=== PATIENT | male | born 1985 | race Caucasian/White ===

== ENCOUNTER 2016-05-25 21:40 | Emergency (ER) | payer SELFPAY ==
[~2016-05-25] VITALS: Ht 182.9 cm; Wt 127.0 kg
[~2016-05-25 21:40] MED LIST: CIPR500T4 PO; ONDA8TAB13 PO; ONDAN4ODT PO; PHEN-639 PO; SULF1TAB35 PO; TRAM50TA2 PO
--- NOTE | 2016-05-25 21:51 | ED Headache ---
General Stated Complaint: HEADACHE/NAUSEA Source: patient Exam Limitations: no limitations History of Present Illness Time seen by provider: 21:49 Initial Comments To ER with a headache and nausea. This began this morning when he first awakened. He states that upon awakening he felt "a little queasy". He then had to take his son to [place] and during the ride up there he developed a headache that stayed with him throughout the course of the day. Headache is frontal in location worsened by light. There was nothing that worsens his headache except exposure to bright lights and the only thing that improves his headache is putting pressure on the front of his forehead. No history of this. No visual changes. No neck pain or stiffness. He's had chills but no fevers. He also had diarrhea once this morning. No history of headaches. The headache was gradual in onset and not thunderclap style. He has also had some dizziness today mostly upon changing position from sitting to standing. His headache has improved somewhat at this time since its maximum intensity reached at some point this afternoon. Timing/Duration: other (12 hours) Severity/Quality: moderate Location: frontal Prior Headaches/Recent Trauma: no recent headache/trauma Modifying Factors: worse with exposure to light Associated Symptoms: No confusion, No fatigue, No facial pain, No fever/chills , No flushing, No loss of consciousness, nausea/vomiting, No nasal congestion, No nasal drainage, No numbness in legs/feet, No rash, No seizures, No sinus infection, No stiff neck, No vision changes, No weakness Allergies and Home Medications Allergies Coded Allergies: No Known Drug Allergies (Unverified , 01/25/10) Home Medications No Active Prescriptions or Reported Meds Constitutional: see HPI Eyes: See HPI, Denies Blindness, Denies Blurred Vision, Photophobia Ears, Nose, Mouth, Throat: no symptoms reported Respiratory: no symptoms reported Cardiovascular: no symptoms reported Gastrointestinal: No abdominal pain, nausea Genitourinary: no symptoms reported Musculoskeletal: no symptoms reported Skin: no symptoms reported Psychiatric/Neurological: No Symptoms Reported Past Igofjpf-Ctkzvq-Czzgnv Hx Patient Social History Recent Foreign Travel: No Contact w/Someone Who Travel: No Immunizations Up To Date Tetanus Booster (TDap): Less than 5yrs Seasonal Allergies Seasonal Allergies: No Surgeries HX Surgeries: Yes (TESTICULAR SURG CHILD) Respiratory Hx Respiratory Disorders: No Cardiovascular Hx Cardiac Disorders: No Neurological Hx Neurological Disorders: No Reproductive System Hx Reproductive Disorders: No Genitourinary Hx Genitourinary Disorders: No Gastrointestinal Hx Gastrointestinal Disorders: No Musculoskeletal Hx Musculoskeletal Disorders: No Endocrine Hx Endocrine Disorders: No HEENT HX ENT Disorders: No Cancer Hx Cancer: No Psychosocial Hx Psychiatric Problems: No Integumentary HX Skin/Integumentary Disorder: No Blood Transfusions Hx Blood Disorders: No Family Medical History Significant Family History: No Pertinent Family Hx Physical Exam Vital Signs Vital Sign - Last 12Hours 05/25/16 21:44 Temp 96.5 Pulse 64 Resp 18 B/P (MAP) 130/88 Pulse Ox 98 O2 Delivery Room Air Capillary Refill : General Appearance: WD/WN, no apparent distress HEENT: PERRL/EOMI, normal ENT inspection, photophobia Neck: non-tender, full range of motion, No lymphadenopathy (R), No lymphadenopathy (L), No tender lateral, No tender midline, other (able to flex chin to chest without worsening headache or neck pain) Cardiovascular: regular rate, rhythm, no murmur Respiratory: lungs clear, normal breath sounds, no respiratory distress, no accessory muscle use Gastrointestinal: normal bowel sounds, non tender, soft Extremities: normal range of motion, non-tender Psychiatric: alert, oriented x 3 Crainal Nerves: normal hearing, normal speech, PERRL Skin: normal color, warm/dry Progress/Results/Core Measures Results/Orders Lab Results Laboratory Tests Test 05/25/16 21:50 Range/Units White Blood Count 8.1 4.3-11.0 10^3/uL Red Blood Count 5.37 4.35-5.85 10^6/uL Hemoglobin 16.4 13.3-17.7 G/DL Hematocrit 46 40-54 % Mean Corpuscular Volume 86 80-99 FL Mean Corpuscular Hemoglobin 31 25-34 PG Mean Corpuscular Hemoglobin Concent 35 32-36 G/DL Red Cell Distribution Width 13.1 10.0-14.5 % Platelet Count 244 130-400 10^3/uL Mean Platelet Volume 9.7 7.4-10.4 FL Neutrophils (%) (Auto) 65 42-75 % Lymphocytes (%) (Auto) 25 12-44 % Monocytes (%) (Auto) 8 0-12 % Eosinophils (%) (Auto) 2 0-10 % Basophils (%) (Auto) 1 0-10 % Neutrophils # (Auto) 5.3 1.8-7.8 X 10^3 Lymphocytes # (Auto) 2.0 1.0-4.0 X 10^3 Monocytes # (Auto) 0.6 0.0-1.0 X 10^3 Eosinophils # (Auto) 0.2 0.0-0.3 10^3/uL Basophils # (Auto) 0.0 0.0-0.1 10^3/uL My Orders Orders - ALEXEY CENTENO APRN Cbc With Automated Diff (05/25/16 21:48) Saline Lock/Iv-Start (05/25/16 21:48) Ct Head Wo (05/25/16 21:48) Ns Iv 1000 Ml (Sodium Chloride 0.9%) (05/25/16 22:00) Ketorolac Injection (Toradol Injection) (05/25/16 22:00) Diphenhydramine Injection (Benadryl Inje (05/25/16 22:00) Prochlorperazine Injection (Compazine In (05/25/16 22:00) Medications Given in ED Current Medications Medications Dose Ordered Sig/Ledy Route Start Time Stop Time Status Last Admin Dose Admin Diphenhydramine HCl 25 mg ONCE ONCE IVP 05/25/16 22:00 05/25/16 22:01 DC 05/25/16 22:16 25 MG Ketorolac Tromethamine 30 mg ONCE ONCE IVP 05/25/16 22:00 05/25/16 22:01 DC 05/25/16 22:17 30 MG Prochlorperazine Edisylate 5 mg ONCE ONCE IV 05/25/16 22:00 05/25/16 22:01 DC 05/25/16 22:17 5 MG Vital Signs/I&O Vital Sign - Last 12Hours 05/25/16 21:44 Temp 96.5 Pulse 64 Resp 18 B/P (MAP) 130/88 Pulse Ox 98 O2 Delivery Room Air Departure Communication Progress Notes 2238-CT scan per [employer] interpretation shows no intracranial hemorrhage or mass effect or edema. No evidence of acute cortical stroke. The visualized sinuses and mastoid air cells are clear. He currently Rates headache at 2 out of 10. On arrival was 7-8 out of 10. Will DC to home. Impression Impression: Primary Impression: Headache Additional Impression: Nausea Disposition: HOME, SELF-CARE Condition: Stable Departure-Patient Inst. Decision time for Depature: 22:28 Referrals: NO,LOCAL PHYSICIAN (PCP/Family) Primary Care Physician Patient Instructions: Headache, Adult (DC) Add. Discharge Instructions: 1. If your headache continues you must call your regular health care provider tomorrow to make an appointment for further evaluation. If you do not have a physician, a list has been provided for you. 2. Return to the emergency room for any worsening headache, fevers, vision changes or other concerns Scripts No Active Prescriptions or Reported Meds Work/School Note: Local Medical Staff Listing ALEXEY CENTENO APRN May 25, 2016 21:51
[2016-05-25] MEDS ORDERED: KETOROLAC 30 MG/ML VIAL IVP ONE (22:00)
[2016-05-25] MEDS ORDERED: diphenhydrAMINE 50 MG/ML INJ (BENADRYL) IVP ONE (22:00)
[2016-05-25] MEDS ORDERED: NS IV 1000 ML 1,000 ML IV SCH (22:00)
[2016-05-25] MEDS ORDERED: PROCHLORPERAZINE 10 MG/2ML INJ (COMPAZINE) IV ONE (22:00)
[2016-05-25 22:22] LABS: BASOPHILS % (AUTO) 1 % (0-10); EOSINOPHILS # (AUTO) 0.2 10^3/uL (0.0-0.3); EOSINOPHILS % (AUTO) 2 % (0-10); LYMPHOCYTES % (AUTO) 25 % (12-44); MEAN CORPUSCULAR HEMOGLOBIN 31 PG (25-34); MEAN CORPUSCULAR HGB CONC 35 G/DL (32-36); MEAN CORPUSCULAR VOLUME 86 FL (80-99); MEAN PLATELET VOLUME 9.7 FL (7.4-10.4); MONOCYTES # (AUTO) 0.6 X 10^3 (0.0-1.0); MONOCYTES % (AUTO) 8 % (0-12); NEUTROPHILS # (AUTO) 5.3 X 10^3 (1.8-7.8); NEUTROPHILS % (AUTO) 65 % (42-75); PLATELET COUNT 244 10^3/uL (130-400); RED BLOOD COUNT 5.37 10^6/uL (4.35-5.85); RED CELL DISTRIBUTION WIDTH 13.1 % (10.0-14.5); WHITE BLOOD COUNT 8.1 10^3/uL (4.3-11.0)
[2016-05-25 22:55] VITALS: BP 135/79
--- NOTE | 2016-05-26 07:13 | Diagnostic Imaging Report ---
PROCEDURE: CT head without contrast. TECHNIQUE: Multiple contiguous axial images were obtained through the brain without the use of intravenous contrast. INDICATION: Headache for one day Comparison studies: None Findings: Noncontrast CT scan of the head demonstrates no mass effect, midline shift, hemorrhage or extra-axial fluid collections. Mooney-white matter differentiation is normal. Bone windows appear normal. IMPRESSION: Normal CT scan of the head. Dictated by: Dictated on workstation # [id number]
--- OUTSIDE RECORDS SUMMARY | 2016-05-29 05:21 | XMS REPORT ---
Author Author LUIS DEJESUS [facility] eClinical[employer] Address Unknown Phone Unavailable Care Team Providers Care Authors Motivational Name Role Phone LUIS DEJESUS CP Unavailable Allergies No Known Allergies Problems Problem Type Condition ICD-9 Code Onset Dates Condition Status Problem Unspecified backache 724.5 Active Problem Lumbago 724.2 Active Problem Unspecified hemorrhoids without mention of complication 455.6 Active Medications No Known Medications Results No Known Results Summary Purpose eClinicalWorks Submission
--- OUTSIDE RECORDS SUMMARY | 2016-05-29 05:21 | XMS REPORT | Continuity of Care Document ---
Author Author [facility] Organization [facility] Address Unknown Phone Unavailable Care Team Providers Care Recreation Superintendent Name Role Phone [facility] Insurance Providers Payer Name Policy Number Subscriber Name Relationship Self Pay Chelo Platt 01 Self / Same As Patient Advance Directives Directive Response Recorded Date Advance Directives N 09/15/12 7:00pm Health Care Power of Consumer Safety Officer N 09/15/12 7:00pm Organ Donor N 09/15/12 7:00pm Problems No Known Problems or Medical conditions. Social History History Response Recorded Date/Time Alcohol Use Occasionally Uses 09/15/12 7: 00pm Recreational Drug Use N 09/15/12 7:00pm Allergies, Adverse Reactions, Alerts Allergen Type Severity Reaction Last Updated No Known Drug Allergies 01/25/10 Medications No known medications Response Recorded Date/Time Status not known Unknown Results No Known Relevant Diagnostic Tests, Laboratory Data and/or Discharge Summary. Encounters Encounter Location Date/Time Departed Emergency Room [facility] 6:55pm Registered Emergency Room [facility] 08/26/05 5:56pm
--- OUTSIDE RECORDS SUMMARY | 2016-05-29 05:21 | XMS REPORT | Continuity of Care Document ---
Author Author [facility] Address Unknown Phone Unavailable Allergies Active Description Code Type Severity Reaction Onset Reported/Identified Relationship to Patient Clinical Status Yes No Known Drug Allergies [id number] Drug Allergy Unknown N/ A 01/25/2010 Medications Problems Date Dx Coded Attending Type Code Diagnosis Diagnosed By 01/25/2010 Ot 682.6 03/09/2010 847.2 SPRAIN LUMBAR REGION 03/09/2010 JULIETA PATEL APRN 847.2 SPRAIN LUMBAR REGION 03/09/2010 847.2 SPRAIN LUMBAR REGION 10/07/2011 Ot 558.9 10/07/2011 Ot 787.01 03/27/2012 455.6 UNSPECIFIED HEMORRHOIDS WITHOUT COMPLICATION 03/27/2012 JULIETA PATEL APRN 455.6 UNSPECIFIED HEMORRHOIDS WITHOUT COMPLICATION 03/27/2012 455.6 UNSPECIFIED HEMORRHOIDS WITHOUT COMPLICATION 05/30/2012 JULIETA PATEL APRN 724.2 LUMBAGO/ LOW BACK PAIN 05/30/2012 724.2 LUMBAGO/ LOW BACK PAIN 09/15/2012 TREVOR ADAMS, DREW Geronimo Ot 882.1 09/15/2012 TREVOR ADAMS, DREW A Ot E000.8 09/15/2012 TREVOR ADAMS, DREW A Ot E849.0 09/15/2012 TREVOR ADAMS, DREW A Ot E920.8 10/30/2012 724.5 BACKACHE UNSPECIFIED 11/13/2014 BRANDIE NOYOLA Ot 276.50 11/13/2014 BRANDIE NOYOLA Ot 599.0 11/13/2014 BRANDIE NOYOLA Ot 787.01 11/13/2014 BRANDIE NOYOLA Ot 788.0 Procedures Code [place] [address] UA W/ CULTURE IF INDICATED 05/30/2012 13714 XRAY LUMBAR SPINE 2 OR 3 VIEWS 05/31/2012 Results Test Result Range Complete blood count (CBC) with automated white blood cell (WBC) differential - 05/25/16 21:50 Blood leukocytes automated count (number/volume) 8.1 10*3/ uL 4.3-11.0 Blood erythrocytes automated count (number/volume) 5.37 10*6 /uL 4.35-5.85 Venous blood hemoglobin measurement (mass/volume) 16.4 g/dL 13.3-17.7 Blood hematocrit (volume fraction) 46 % 40-54 Automated erythrocyte mean corpuscular volume 86 [foz_us] 80-99 Automated erythrocyte mean corpuscular hemoglobin (mass per erythrocyte) 31 pg 25-34 Automated erythrocyte mean corpuscular hemoglobin concentration measurement ( mass/volume) 35 g/dL 32-36 Automated erythrocyte distribution width ratio 13.1 % 10.0-14.5 Automated blood platelet count (count/volume) 244 10*3/uL 130-400 Automated blood platelet mean volume measurement 9.7 [foz_us ] 7.4-10.4 Automated blood neutrophils/100 leukocytes 65 % 42-75 Automated blood lymphocytes/100 leukocytes 25 % 12-44 Blood monocytes/100 leukocytes 8 % 0-12 Automated blood eosinophils/100 leukocytes 2 % 0-10 Automated blood basophils/100 leukocytes 1 % 0-10 Blood neutrophils automated count (number/volume) 5.3 10*3 1.8-7.8 Blood lymphocytes automated count (number/volume) 2.0 10*3 1.0-4.0 Blood monocytes automated count (number/volume) 0.6 10*3 0.0-1.0 Automated eosinophil count 0.2 10*3/uL 0.0-0.3 Automated blood basophil count (count/volume) 0.0 10*3/uL 0.0-0.1 Encounters ACCT No. Visit Date/Time Discharge Status Pt. Type Provider Facility Loc./Unit Complaint [id number] 05/30/2012 15:14:00 05/30/2012 23: 59:59 CLS Outpatient JULIETA PATEL APRN [id number] 03/27/2012 09:50:00 03/27/2012 23: 59:59 CLS Outpatient [id number] 10/30/2012 14:29:00 Document Registration
== END 2016-05-25 22:55 | disposition home or self-care (01) ==
LOC: EDUNIT# 21:40 → ER 21:42
DX: R51 Headache (principal); R42 Dizziness and giddiness; R11.0 Nausea
CPT/HCPCS: 36415; 70450; 85025; 96361; 96374; 96375

== ENCOUNTER → 2016-08-15 | Outpatient (CLI) | payer BC, OTHER ==
--- NOTE | 2016-08-15 10:25 | Diagnostic Imaging Report ---
PROCEDURE: MRI lumbar spine. TECHNIQUE: Multiplanar, multisequence MRI of the lumbar spine was performed without contrast. INDICATION: Back pain. FINDINGS: The alignment of the lumbar spine is satisfactory. The vertebral body heights are preserved. There is disc desiccation at the L5/S1 level. Minimal disc height loss at this level is seen. The cauda equina and conus medullaris appear grossly unremarkable. The AP dimension of the spinal canal is relatively narrow particularly around L3 level with no congenital spinal canal stenosis however. T12/L1: No disc herniation, no spinal canal or foraminal stenosis. L1/2: No disc herniation, no spinal canal or foraminal stenosis. L2/3: There is no disc herniation. There is mild facet and ligamentous hypertrophy. No central canal or lateral recess stenosis. No foraminal narrowing. L3/4: There is no disc herniation. There is mild facet hypertrophy seen bilaterally. No central canal, lateral recess or foraminal stenosis. L4/5: There is no disc herniation, no central canal stenosis. There is mild facet hypertrophy with minimal facet joint effusion bilaterally. No central canal stenosis. There is mild narrowing of the lateral recess bilaterally. The foramina demonstrate minimal stenosis bilaterally. L5/S1: There is a central disc protrusion and mild facet hypertrophy. No central canal or lateral recess stenosis. There is mild foraminal narrowing more prominent in the left side. 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 Mild facet hypertrophy in the lower lumbar spine and disc protrusion at L5/S1 is seen. No high-grade spinal canal or foraminal stenosis is seen at any level. Dictated by: Dictated on workstation # [id number]
== END | disposition home or self-care (01) ==
LOC: RAD 08:46
PROVIDERS: ATTEND Nurse Practitioner Adult Health
DX: M51.27 Other intervertebral disc displacement, lumbosacral region (principal)
CPT/HCPCS: 72148

== ENCOUNTER 2018-12-30 16:20 | Emergency (ER) | payer SELFPAY ==
[~2018-12-30] VITALS: Ht 185.4 cm; Wt 139.0 kg
[2018-12-30] MEDS ORDERED: TRAMADOL (16:33)
--- NOTE | 2018-12-30 16:42 | ED Cough/URI ---
General Chief Complaint: Fever-Adult/Adol Stated Complaint: FEVER Nursing Triage Note: FEVER STARTING MON. WENT TO CLINIC WHO "DID NOTHING" FOR HIM. HAS BEEN HAVING A LOW GRADE FEVER SINCE WITH A COUGH. HAS ONLY VOIDED ONCE TODAY. NO N/V. Sepsis Screen: Possible Severe Sepsis Risk Source: patient Exam Limitations: no limitations (SOFIE QUEZADA STUDENT) History of Present Illness Date Seen by Provider: Dec 30, 2018 Time Seen by Provider: 16:30 Initial Comments Patient presents to the ED today with a 5 day history of fever and productive cough. The patient states his fever reached 102 F at one point, but is afebrile today; he has taken Tylenol for the fever. He also stated he was coughing up black sputum but has recently turned to a green color. He has a history of bronchitis but has never had pneumonia. He has not received the influenza vaccine this year. He does not complain of any other associated symptoms. Timing/Duration: week Severity/Quality: moderate, productive cough, sputum Prior Episodes/Possible Cause: occasional episodes (Has a history of bronchitis) Modifying Factors: Improves With Other (Nothing alleviates the cough) Associated Symptoms: cough, fever/chills (SOFIE QUEZADA STUDENT) Allergies and Home Medications Allergies Coded Allergies: No Known Drug Allergies (Unverified , 01/25/10) Patient Home Medication List Home Medication List Reviewed: Yes (BRANDI GRAY MD) Review of Systems Review of Systems Constitutional: see HPI Respiratory: see HPI Cardiovascular: no symptoms reported Gastrointestinal: no symptoms reported Genitourinary: no symptoms reported Musculoskeletal: no symptoms reported Skin: no symptoms reported Psychiatric/Neurological: No Symptoms Reported Hematologic/Lymphatic: No Symptoms Reported Immunological/Allergic: no symptoms reported (SOFIE QUEZADA STUDENT) Constitutional: chills, fever EENTM: nose congestion; No throat pain Respiratory: cough; No short of breath, No wheezing (BRANDI GRAY MD) Past Msvclcz-Dreqwt-Jjvlnk Hx Past Med/Social Hx: Reviewed Nursing Past Med/Soc Hx (BRANDI GRAY MD) Patient Social History Alcohol Use: Denies Use Recreational Drug Use: No Smoking Status: Never a Smoker Type Used: Cigars Recent Foreign Travel: No Contact w/Someone Who Travel: No Recent Infectious Disease Expo: No Recent Hopitalizations: No (SOFIE QUEZADA STUDENT) Immunizations Up To Date Tetanus Booster (TDap): Less than 5yrs (SOFIE QUEZADA) Seasonal Allergies Seasonal Allergies: No (SOFIE QUEZADA) Past Medical History Surgeries: Yes (TESTICULAR SURG CHILD) Respiratory: No Cardiac: No Neurological: No Reproductive Disorders: No Genitourinary: No Gastrointestinal: No Musculoskeletal: No Endocrine: No HEENT: No Cancer: No Psychosocial: No Integumentary: No Blood Disorders: No (SOFIE QUEZDAA) Family Medical History Reviewed Nursing Family Hx (BRANDI GRAY MD) No Pertinent Family Hx (SOFIE QUEZADA) Physical Exam Vital Signs - First Documented 12/30/18 16:25 Temp 36.9 Pulse 98 Resp 16 B/P (MAP) 132/81 (98) Pulse Ox 99 O2 Delivery Room Air (BRANDI GRAY MD) Capillary Refill : Less Than 3 Seconds (SOFIE QUEZADA) Height: 6'1.00" Weight: 300lbs. oz. 136.834477me; 40.00 BMI Method:Stated General Appearance: WD/WN, no apparent distress Eyes: Bilateral Eye Normal Inspection, Bilateral Eye PERRL, Bilateral Eye EOMI HEENT: PERRL/EOMI, normal ENT inspection, TMs normal (Indicative of Upper Respiratory congestion, but not purulent), pharynx normal Respiratory: chest non-tender, no respiratory distress, no accessory muscle use, crackles (at right lung base) Cardiovascular: normal peripheral pulses, regular rate, rhythm, no edema, no gallop, no JVD, no murmur Gastrointestinal: normal bowel sounds, non tender, soft, no organomegaly, no pulsatile mass Extremities: non-tender, no pedal edema Neurologic/Psychiatric: alert, normal mood/affect, oriented x 3 Skin: normal color, warm/dry Lymphatic: no adenopathy (SOFIE QUEZADA) General Appearance: WD/WN, no apparent distress HEENT: other (mild bulging bilateral TMs without erythema or purulence) Neck: full range of motion, supple Respiratory: no respiratory distress, crackles (few at the bases bilateral but clears with cough) Cardiovascular: regular rate, rhythm, no murmur Neurologic/Psychiatric: alert, oriented x 3 (BRANDI GRAY MD) Progress/Results/Core Measures Suspected Sepsis Recent Fever Within 48 Hours: Yes Infection Criteria Present: Suspected New Infection New/Unexplained Altered Menta: No Sepsis Screen: Possible Severe Sepsis Risk SIRS Temperature: Pulse: 98 Respiratory Rate: 16 Blood Pressure 132 /81 Mean: 98 (SOFIE QUEZADA STUDENT) Results/Orders Micro Results Microbiology 12/30/18 Influenza Types A,B Antigen (YING) - Final, Complete (BRANDI GRAY MD) My Orders Orders - BRANDI GRAY MD Influenza A And B Antigens (12/30/18 16:31) Chest Pa/Lat (2 View) (12/30/18 16:36) (BRANDI GRAY MD) Vital Signs/I&O 12/30/18 16:25 Temp 36.9 Pulse 98 Resp 16 B/P (MAP) 132/81 (98) Pulse Ox 99 O2 Delivery Room Air (BRANDI GRAY MD) Vital Signs/I&O Capillary Refill : Less Than 3 Seconds (SOFIE QUEZADA STUDENT) Blood Pressure Mean: 98 Progress Note : Progress Note I have seen and evaluated the patient and agree with above except as indicated. I directed the plan of care. Patient is most concerned secondary to other family members with prolonged cough that ended up with pneumonia. Two-view chest x-ray and influenza screen ordered. Tolerating by mouth fluids without difficulty. Monitor patient. 1724: Levaquin 750 mg by mouth. Albuterol inhaler teaching done and go pack given. Discharged home with return precautions. Patient verbalize understanding instructions and agreement with plan. (BRANDI GRAY MD) Diagnostic Imaging Diagonstic Imaging: Xray Plain Films/CT/US/NM/MRI: chest Comments NAME: CHELO PLATT [facility] REC#: [id number] PT STATUS: REG ER : 1985 PHYSICIAN: BRANDI GRAY MD ADMIT DATE: 12/30/18/ER Draft Date of Exam:12/30/18 CHEST PA/LAT (2 VIEW) INDICATION: Febrile with cough. FINDINGS: There is consolidated infiltrate in the right middle lobe. The lungs are well aerated. Left lung is clear. Heart is not enlarged. No pulmonary edema. No pneumothorax or pleural effusion. IMPRESSION: Consolidated pneumonia right middle lobe. Dictated on workstation # [id number] Dict: 12/30/18 1710 Trans: 12/30/18 1714 KB [id number] Interpreted by: MATT FUENTES MD Electronically signed by: (BRANDI GRAY MD) Departure Impression Primary Impression: Right middle lobe pneumonia Qualified Codes: J18.1 - Lobar pneumonia, unspecified organism Disposition: HOME, SELF-CARE Condition: Stable Departure-Patient Inst. Decision time for Depature: 17:11 (BRANDI GRAY MD) Referrals: NO,LOCAL PHYSICIAN (PCP/Family) Primary Care Physician Patient Instructions: Pneumonia, Adult (DC) Add. Discharge Instructions: All discharge instructions reviewed with patient and/or family. Voiced understanding. You may continue the DayQuil and NyQuil per package directions. You may take ibuprofen 600 mg every 8 hours as needed for fever or pain. You may use Afrin nasal spray or the generic, 12 hour relief, 2 sprays to each nostril twice daily for 3 days only and then stop. Do not use more than 3 days. Follow-up with your Dr. in a few days for recheck. Drink plenty of fluids. Return for worse pain, fever, vomiting, weakness, breathing problems or other concerns as needed. You may use the inhaler 2 puffs every 4 hours as needed for cough or wheezing. Scripts Levofloxacin (Levofloxacin) 750 Mg Tablet 750 MG PO DAILY, #6 TAB 0 Refills Prov: BRANDI GRAY MD 12/30/18 SOFIE QUEZADA STUDENT Dec 30, 2018 16:42 BRANDI GRAY MD Dec 30, 2018 17:00
--- NOTE | 2018-12-30 17:14 | Diagnostic Imaging Report ---
INDICATION: Febrile with cough. FINDINGS: There is consolidated infiltrate in the right middle lobe. The lungs are well aerated. Left lung is clear. Heart is not enlarged. No pulmonary edema. No pneumothorax or pleural effusion. IMPRESSION: Consolidated pneumonia right middle lobe. Dictated by: Dictated on workstation # [id number]
[2018-12-30] MEDS ORDERED: LEVO750T39 PO (17:23)
[2018-12-30] MEDS ORDERED: RX-ALBUTEROL INHALER (PROAIR) 8.5 GM IH STA (17:25)
[2018-12-30] MEDS ORDERED: LEVOFLOXACIN 750 MG TAB (LEVAQUIN) PO ONE (17:30)
[2018-12-30 17:40] VITALS: BP 146/79
== END 2018-12-30 17:40 | disposition home or self-care (01) ==
LOC: EDUNIT# 16:20 → ER 16:21
DX: J18.1 Lobar pneumonia, unspecified organism (principal)
CPT/HCPCS: 71046; 87804

== ENCOUNTER → 2019-07-30 | Outpatient (CLI) | payer SELFPAY ==
[~2019-07-30] MED LIST changes: +LEVO750T39 PO; -TRAM50TA2 PO; +TRAMADOL; +TRM50T PO
--- NOTE | 2019-07-30 09:35 | Diagnostic Imaging Report ---
PROCEDURE: MRI lumbar spine. TECHNIQUE: Multiplanar, multisequence MRI of the lumbar spine was performed without contrast. INDICATION: Back pain. Comparison made with prior evaluation 08/15/2016. FINDINGS: The alignment of lumbar spine is normal. Vertebral body heights are well-maintained. No spondylolysis or spondylolisthesis. No fractures are identified. Conus medullaris is seen at L1 is normal in appearance. 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 The T12-L1, L1-L2, L2-L3, L3-L4 and L4-L5 discs are normal in height, signal intensity and morphology. At L5-S1, there is loss of disc height and signal intensity with some mild annular bulging. There is slight effacement of ventral thecal sac and minimal neural foraminal encroachment. There is lower lumbar hypertrophic degenerative facet disease. Aorta is nonaneurysmal. Visualized kidneys are unremarkable. IMPRESSION: Mild degenerative disc disease at L5-S1 otherwise unremarkable. Dictated by: Dictated on workstation # [id number]
== END ==
LOC: RAD 07:45
PROVIDERS: ATTEND Physician Assistant
DX: M51.17 Intervertebral disc disorders with radiculopathy, lumbosacral region (principal)
CPT/HCPCS: 72148

== ENCOUNTER 2019-12-08 22:30 | Emergency (ER) | payer SELFPAY ==
[~2019-12-08] VITALS: Ht 185.4 cm; Wt 131.8 kg
[2019-12-08 23:27] LABS: BILIRUBIN,URINE NEGATIVE (NEGATIVE); CLARITY,URINE CLEAR; COLOR,URINE YELLOW; GLUCOSE, URINE (UA) NEGATIVE (NEGATIVE); KETONES,URINE NEGATIVE (NEGATIVE); LEUKOCYTE ESTERASE ,URINE NEGATIVE (NEGATIVE); NITRITE,URINE NEGATIVE (NEGATIVE); PH,URINE 5.5 (5-9); PROTEIN,URINE NEGATIVE (NEGATIVE)
[2019-12-08 23:46] LABS: BACTERIA,URINE NEGATIVE /HPF; CALCIUM OXALATE CRYSTALS,UR LARGE /LPF; SQUAMOUS EPITHELIAL CELL,UR 0-2 /HPF
--- NOTE | 2019-12-09 00:13 | ED Back Pain ---
General Chief Complaint: Back Problems Stated Complaint: LOWER BACK PAIN History of Present Illness Date Seen by Provider: Dec 09, 2019 Time Seen by Provider: 00:11 Initial Comments This is a 34-year-old male who presents to the ER for acute on chronic localized low back pain. Denies any trauma or injury to the area. States he has had several MRIs and has multiple bulging disks. His primary care provider recommended physical therapy, but unfortunately this is not work with his current work schedule and he has opted not to do physical therapy. His provider prescribed him tramadol and Flexeril, which he states provides minimal relief. He rates pain 9 out of 10 at this time and worse with movement. Denies any radicular symptoms. Denies fevers, chills, nausea, vomiting, numbness, tingling, weakness. Denies changes in bowel or bladder. Requested something stronger for pain management. Modifying Factors: Improves With Immobilization; Worse With Jarring, Worse With Movement Associated Symptoms: denies symptoms Allergies and Home Medications Allergies Coded Allergies: No Known Drug Allergies (Unverified , 01/25/10) Home Medications Levofloxacin 750 Mg Tablet, 750 MG PO DAILY Prescribed by: BRANDI GRAY on 12/30/18 1723 Prednisone 20 Mg Tab, 20 MG PO DAILY Prescribed by: DONALDO LUNA on 12/09/19 0020 Patient Home Medication List Home Medication List Reviewed: Yes Review of Systems Constitutional: no symptoms reported EENTM: no symptoms reported Respiratory: no symptoms reported Cardiovascular: no symptoms reported Gastrointestinal: no symptoms reported Genitourinary: no symptoms reported Musculoskeletal: see HPI Skin: no symptoms reported Psychiatric/Neurological: No Symptoms Reported Past [id number]-[id number] Hx Patient Social History Type Used: Cigars Recent Foreign Travel: No Contact w/Someone Who Travel: No Recent Hopitalizations: No Immunizations Up To Date Tetanus Booster (TDap): Less than 5yrs Seasonal Allergies Seasonal Allergies: No Past Medical History Surgeries: Yes (TESTICULAR SURG CHILD) Respiratory: No Cardiac: No Neurological: No Reproductive Disorders: No Genitourinary: No Gastrointestinal: No Musculoskeletal: No Endocrine: No HEENT: No Cancer: No Psychosocial: No Integumentary: No Blood Disorders: No Family Medical History No Pertinent Family Hx Physical Exam Vital Signs Vital Signs - First Documented 12/08/19 22:30 Temp 36.9 Pulse 111 Resp 16 B/P (MAP) 147/99 (115) Pulse Ox 98 O2 Delivery Room Air Capillary Refill : Height, Weight, BMI Height: 6'1.00" Weight: 300lbs. oz. 136.844623ld; 40.00 BMI Method:Stated General Appearance: No Apparent Distress, WD/WN HEENT: PERRL/EOMI, Pharynx Normal Neck: Full Range of Motion, Normal Inspection, Non Tender Cardiovascular: Regular Rate, Rhythm, No Murmur, Normal Peripheral Pulses Respiratory: Chest Non Tender, Lungs Clear, Normal Breath Sounds Back: Normal Inspection, No Vertebral Tenderness Extremity: Normal Capillary Refill, Normal Inspection, Normal Range of Motion, Non Tender Neurologic/Psychiatric: Oriented x3, No Motor/Sensory Deficits, Normal Mood/Affect; No Motor Weakness, No Sensory Deficit Skin: Normal Color, Warm/Dry Progress/Results/Core Measures Results/Orders Lab Results Laboratory Tests Test 12/08/19 23:16 Range/Units Urine Color YELLOW Urine Clarity CLEAR Urine pH 5.5 5-9 Urine Specific [place] 1.025 H 1.016-1.022 Urine Protein NEGATIVE NEGATIVE Urine Glucose (UA) NEGATIVE NEGATIVE Urine Ketones NEGATIVE NEGATIVE Urine Nitrite NEGATIVE NEGATIVE Urine Bilirubin NEGATIVE NEGATIVE Urine Urobilinogen 1.0 < = 1.0 MG/DL Urine Leukocyte Esterase NEGATIVE NEGATIVE Urine RBC (Auto) NEGATIVE NEGATIVE Urine RBC NONE /HPF Urine WBC NONE /HPF Urine Squamous Epithelial Cells 0-2 /HPF Urine Crystals PRESENT H /LPF Urine Calcium Oxalate Crystals LARGE H /LPF Urine Bacteria NEGATIVE /HPF Urine Casts NONE /LPF Urine Mucus NEGATIVE /LPF Urine Culture Indicated NO My Orders Orders - DONALDO LUNA APRN Ketorolac Injection (Toradol Injection) (12/09/19 00:15) Orphenadrine Inj (Ed Only) (Norflex Inje (12/09/19 00:15) Prednisone Tablet (Deltasone Tablet) (12/09/19 00:30) Medications Given in ED Current Medications Medications Dose Ordered Sig/Ledy Route Start Time Stop Time Status Last Admin Dose Admin Ketorolac Tromethamine 60 mg ONCE ONCE IM 12/09/19 00:15 12/09/19 00:16 DC 12/09/19 00:37 60 MG Orphenadrine Citrate 60 mg ONCE ONCE IM 12/09/19 00:15 10/5/20 00:16 DC 12/09/19 00:37 60 MG Prednisone 20 mg ONCE ONCE PO 12/09/19 00:30 12/09/19 00:31 DC 12/09/19 00:38 20 MG Vital Signs/I&O 12/08/19 12/09/19 22:30 00:45 Temp 36.9 36.9 Pulse 111 97 Resp 16 16 B/P (MAP) 147/99 (115) 124/82 Pulse Ox 98 97 O2 Delivery Room Air Progress Progress Note : Progress Note Discussed with him that we do not prescribe narcotics for chronic back pain. Has had no injury or trauma to the area. Recommending following up with his primary care provider further management of his chronic back pain. He was given Toradol and Norflex injection and ED first dose of prednisone. Written prescription for steroid burst of prednisone 20 mg by mouth daily for 5 days. Reviewed POC, and he is agreeable with plan. Departure Impression Primary Impression: Acute exacerbation of chronic low back pain Disposition: HOME, SELF-CARE Condition: Stable/Unchanged Departure-Patient Inst. Decision time for Depature: 00:25 Referrals: EVAN DAVIS MD (PCP/Family) Primary Care Physician Patient Instructions: MANAGING YOUR CHRONIC PAIN, Low Back Pain (DC) Add. Discharge Instructions: Plan: 1. Discharge home. 2. May take Tylenol or Ibuprofen as needed for pain per package instructions. 3. Use heat 20 minutes at a time every couple hours as needed for pain. 4. Take Prednisone daily as directed and take with food. 3. Follow up with your primary care provider if your symptoms persist. 4. Return for any new or concerning symptoms. All discharge instructions reviewed with patient and/or family. Voiced understanding. Scripts Prednisone (Prednisone) 20 Mg Tab 20 MG PO DAILY for Moderate to Severe Pain for 5 Days, #5 TAB 0 Refills Prov: DONALDO LUNA [employer] PROGRAMMER 12/09/19 DONALDO LUNA AS400 PROGRAMMER Dec 09, 2019 00:13
[2019-12-09] MEDS ORDERED: ORPHENADRINE 60 MG/2 ML (NORFLEX) AMP (ED ONLY) IM ONE (00:15)
[2019-12-09] MEDS ORDERED: KETOROLAC 60 MG/2 ML VIAL IM ONE (00:15)
[2019-12-09] MEDS ORDERED: PRD20T PO (00:20)
[2019-12-09] MEDS ORDERED: predniSONE 20 MG TAB PO ONE (00:30)
[2019-12-09 00:45] VITALS: BP 124/82
== END 2019-12-09 00:42 | disposition home or self-care (01) ==
LOC: EDUNIT# 22:30 → ER 22:31
DX: M54.5 Low back pain (principal); G89.29 Other chronic pain
CPT/HCPCS: 81000; 99284